=== PATIENT | female | born 1985 | race Two or more races ===

== ENCOUNTER 2021-03-14 21:21 | Inpatient (IN) | payer OTHER ==
[~2021-03-14] VITALS: Ht 152.4 cm; Wt 65.8 kg
[2021-03-14] MEDS ORDERED: ULTRAM50 MG (22:27)
[2021-03-14] MEDS ORDERED: LIPITOR 10 MG (22:28)
[2021-03-14] MEDS ORDERED: ZOLOFT50 MG (22:28)
[2021-03-14] MEDS ORDERED: SYNTHROID50 MCG (22:28)
== END 2021-03-17 12:34 | disposition home or self-care (01) | DRG 343 ==
LOC: ER 21:21 → SURH 03-15 03:36
PROVIDERS: ADMIT Surgery; ATTEND Surgery
PROC: BW21ZZZ Computerized Tomography (CT Scan) of Abdomen and Pelvis (ICD-10-PCS; 2021-03-14)
PROC: 0DTJ4ZZ Resection of Appendix, Percutaneous Endoscopic Approach (ICD-10-PCS; principal; 2021-03-15 08:30)
DX: K35.890 Other acute appendicitis without perforation or gangrene (principal); E03.8 Other specified hypothyroidism; Z20.822 Contact with and (suspected) exposure to COVID-19

== ENCOUNTER 2021-06-29 07:29 | Emergency (ER) | payer OTHER ==
[~2021-06-29] VITALS: Ht 152.4 cm; Wt 64.9 kg
[~2021-06-29 07:29] MED LIST: LIPITOR 10 MG; SYNTHROID50 MCG; ULTRAM50 MG; ZOLOFT50 MG
== END 2021-06-29 15:32 | disposition home or self-care (01) ==
LOC: ER
DX: M54.2 Cervicalgia (principal); R51.9 Headache, unspecified; Z20.822 Contact with and (suspected) exposure to COVID-19; Z88.0 Allergy status to penicillin; Z88.2 Allergy status to sulfonamides